=== PATIENT | female | born 1995 | race Caucasian/White ===

== ENCOUNTER 2016-12-14 18:05 | Emergency (ER) | payer OTHER ==
--- NOTE | ~2016-12-14 | CR63 ---
[facility]. [facility] A Service of [facility] & [facility] RADIOLOGY TEXT RESULTS PATIENT: HAN FERRO LOCATION: SED : [birth year] UNIT #: [id number] AGE: [address]: Mel Mak APRN SEX: F ORDER DR: [id number] [address] [address] [id number] E MR#: [id number] Acc #: [id number] NAME: HAN FERRO : 1995 SEX: F STUDY DATE/TIME: 12/14/2016 18:22 UNIT: SED ROOM: STUDY DESCRIPTION: CR Chest 2 View Attending Physician: Mel Mak A.P.R.N. Ordering Physician: Mel Zazueta A.P.R.N. Primary Care Physician: Sanjay Elder D.O. MEDICAL IMAGING REPORT This report is preliminary unless electronic signature is present. EXAM PA and lateral chest radiograph HISTORY Cough, congestion and chills, beginning last Wednesday. FINDINGS PA and lateral views of the chest are obtained. The heart size is normal. Vascular pattern is normal and the lungs are clear. CONCLUSION Normal chest. Dictated by... Brian Solano M.D. THIS IS AN ELECTRONICALLY VERIFIED REPORT Brian Solano M.D. at 12/16/2016 3:10 PM Viji TD: 12/15/2016 09:06 JOB #: [id number] MEDICAL IMAGING REPORT Page 1 of 1
[~2016-12-14 18:05] MED LIST: AMOXICILLIN PO; AMOXICILLIN875 MG PO; ATIVAN INJ; ATIVAN PO; AUGMENTIN PO; AZITHROMYCIN500 MG PO; BACTRIM DS TABL1 TA1 PO; BCP; BENTYL10 M1 PO; BUSPAR5 M1 PO; CELEXA20 MG PO; CIPRO PO; CIPRO XR 500 M500 MG PO; CRYSELLE PO; CYMBALTA30 MG PO; DEPO-PROVER150 MG/ML INJ; FAMOTIDINE PO; FLEXERIL10 MG PO; IBUPROFEN800 MG PO; IMODIUM2 MG PO; K-DUR20 ME1 PO; KEFLEX500 M1 PO; KEFLEX500 MG; KEFLEX500 MG PO; MACROBID 100 M100 MG PO; MEDROL PO; NAPROSYN500 MG PO; NASONEX17 GM; NO MEDICATIONS; OMNICEF PO; PHENAZOPYRIDIN100 M1 PO; PHENERGAN DM1 ML PO; PHENERGAN PO; PHENERGAN SUPP25 MG PR; PHENERGAN W/CO120 ML PO; PHENERGAN25 MG PO; PRENATAL VITAMI1 TA3 PO; PRENATAL1 TA1 PO; PYRIDIUM PO; PYRIDIUM100 MG PO; ROBAXIN500 MG PO; ROBITUSSIN A-C-S1 ML PO; TAMIFLU75 MG PO; TESSALON200 MG PO; TYLENOL #3 PO; VICODIN 5/500 T1 TAB PO; VISTARIL PO; VOLTAREN50 MG PO; VOLTAREN75 MG PO; ZANTAC PO; ZOFRAN ODT4 MG PO; ZOFRAN PO
== END 2016-12-14 18:59 | disposition home or self-care (01) ==
LOC: SED 18:05
DX: J06.9 Acute upper respiratory infection, unspecified (principal); F43.10 Post-traumatic stress disorder, unspecified
CPT/HCPCS: 71020; 99283

== ENCOUNTER 2017-04-23 21:31 | Emergency (ER) | payer OTHER ==
--- NOTE | ~2017-04-23 | CR63 ---
[facility] A Service of [facility] & [facility] RADIOLOGY TEXT RESULTS PATIENT: HAN FERRO LOCATION: [facility] : [birth year] UNIT #: [id number] AGE: [address]: Eris Beverly MD SEX: F ORDER DR: [id number] [facility] [address] [place], [place] [address] [id number] E MR#: [id number] Acc #: [id number] NAME: HAN FERRO : 1995 SEX: F STUDY DATE/TIME: 04/23/2017 21:57 UNIT: [facility] ROOM: STUDY DESCRIPTION: CR Chest 2 View Attending Physician: Eris Beverly M.D. Ordering Physician: Eris Beverly M.D. Primary Care Physician: Sanjay Elder D.O. MEDICAL IMAGING REPORT This report is preliminary unless electronic signature is present EXAM Two views chest, 04/23/2017. HISTORY Fever, cough, head/body aches began 04/23/2017. REPORT PA and lateral radiographs the chest presented. COMPARISON 12/14/2016. FINDINGS No acute-appearing bony abnormality. Heart and mediastinum normal in size and contour. Lungs are well inflated. Airspace disease in the left lower lobe. Patchy in appearance without dense consolidation. Most consistent with pneumonia given patient history. Short-interval followup to confirm resolution strongly recommended. Remainder of lungs clear. No pleural effusion or pneumothorax. Dictated by... Brian Sanchez M.D. THIS IS AN ELECTRONICALLY VERIFIED REPORT Brian Sanchez M.D. at 04/24/2017 10:54 PM Chet TD: 04/24/2017 15:18 JOB #: [id number] MEDICAL IMAGING REPORT Page 1 of 1 COPY
[2017-04-23 22:21] LABS: URINE SOURCE CLEAN CATCH
[2017-04-23 22:26] LABS: BASOPHIL% 0.5 % (0-2.5); HEMATOCRIT 39.4 % (35.0-45.0); HEMOGLOBIN 13.5 gm/dL (12.0-16.0); LYMPHOCYTE# 0.9 X10e3 (1.0-3.5); LYMPHOCYTE% 9.9 % (17.0-45.0); MEAN CELL VOLUME 86.1 FL (83-96); MEAN CORPUSCULAR HEMOGLOBIN 29.6 PG (28-34); MEAN CORPUSCULAR HGB CONC 34.4 g/dL (30-36); MEAN PLATELET VOLUME 7.8 FL (6.5-11.5); MONOCYTE# 0.5 X10e3 (0-1.0); MONOCYTE% 5.9 % (3.0-12.0); NEUTROPHIL# 7.5 X10e3 (1.5-7.1); NEUTROPHIL% 83.7 % (40-75); PLATELET COUNT 177 X10e3 (140-420); RED BLOOD COUNT 4.57 X10e (3.90-5.30); WHITE BLOOD COUNT 8.9 X10e3 (4.0-10.5)
[2017-04-23 22:27] LABS: URINE APPEARANCE CLEAR; URINE BILIRUBIN NEG (NEG); URINE BLOOD NEG (NEG); URINE COLOR YELLOW; URINE GLUCOSE NEG (NEG); URINE KETONE 1+ (NEG); URINE LEUKOCYTE ESTERASE NEG (NEG); URINE NITRATE NEG (NEG); URINE PH 6.5 (5-8); URINE PROTEIN NEG (NEG); URINE SPECIFIC GRAVITY 1.011 (1.003-1.035)
[2017-04-23 22:28] LABS: DIFF IND NO
[2017-04-23 22:31] LABS: CULTURE INDICATED? NO
[2017-04-23 22:56] LABS: ALBUMIN SERUM 4.1 g/dL (3.5-5.0); BILIRUBIN, DIRECT 0.2 mg/dL (0.0-0.2); BILIRUBIN,TOTAL 1.2 mg/dL (0.2-2.0); BUN/CREATININE RATIO 8.33; CALCIUM SERUM 8.8 mg/dL (8.4-10.2); CREATININE SERUM 0.6 mg/dL (0.6-1.4); GLOM FILT RATE Estimated 128.5 mL/min (>60); POTASSIUM 3.5 mmol/L (3.5-5.1); PROTEIN TOTAL SERUM 7.2 g/dL (6.0-8.3)
== END 2017-04-24 01:12 | disposition home or self-care (01) ==
LOC: CED 21:31
PROVIDERS: Emergency Medicine
DX: J18.9 Pneumonia, unspecified organism (principal); Z90.49 Acquired absence of other specified parts of digestive tract; Z91.040 Latex allergy status; Z88.2 Allergy status to sulfonamides
CPT/HCPCS: 36415; 71020; 80048; 80076; 81003; 83690; 84703; 85025; 87040; 87651; 96361; 96365; 96375; 99284; J1885; J2405